=== PATIENT | male | born 2000 | race Caucasian/White ===

== ENCOUNTER 2023-03-08 13:51 | Day surgery (SDC) | payer BC, SELFPAY ==
[2023-03-08] MEDS ORDERED: fentaNYL PF 100 MCG/2 ML SYRINGE ONE ×2 (14:07→14:08)
[2023-03-08] MEDS ORDERED: SUGAMMADEX SODIUM 200 MG/2 ML VIAL ONE (14:09)
[2023-03-08] MEDS ORDERED: EPINEPHrine 1 MG/ML AMP ONE (14:16)
[2023-03-08] MEDS ORDERED: Bupivacaine 0.25% HCL 30 ML VIAL ONE (14:16)
[2023-03-08] MEDS ORDERED: ceFOXitin 1 GM VIAL ONE (14:24)
[2023-03-08] MEDS ORDERED: Sodium Chloride 0.9% 100 ML ONE (14:24)
[2023-03-08] MEDS ORDERED: Lidocaine 1% PF 5 ML VIAL ONE (14:40)
[2023-03-08] MEDS ORDERED: Rocuronium Bromide 10 MG/ML (10ML VIAL) ONE (14:40)
[2023-03-08] MEDS ORDERED: PROPOFOL 200 MG/20 ML VIAL ONE (14:40)
[2023-03-08] MEDS ORDERED: Succinylcholine 200 MG/10 ml SYRINGE FS ONE (14:40)
[2023-03-08] MEDS ORDERED: HYDROcodone/Acetaminophen 5/325 mg Tablet ONE (16:12)
== END 2023-03-08 17:24 | disposition home or self-care (01) ==
LOC: SDC 13:51
PROVIDERS: ATTEND Surgery
PROC: 0DTJ4ZZ Resection of Appendix, Percutaneous Endoscopic Approach (ICD-10-PCS; principal; 2023-03-08)
DX: K35.30 Acute appendicitis with localized peritonitis, without perforation or gangrene (principal); K66.0 Peritoneal adhesions (postprocedural) (postinfection); Z79.899 Other long term (current) drug therapy
CPT/HCPCS: 88304; A4649; J0171; J0694; J2704; J3490; S0020

== ENCOUNTER 2023-05-17 07:43 | Outpatient (CLI) | payer BC ==
[2023-05-17] MEDS ORDERED: Iopamidol 370 76% 100 ML VIAL ONE (10:59)
== END 2023-05-17 07:44 | disposition home or self-care (01) ==
LOC: CT 07:43
PROVIDERS: ATTEND Surgery
DX: R10.31 Right lower quadrant pain (principal)
CPT/HCPCS: 74177